=== PATIENT | male | born 1990 | race Caucasian/White ===

== ENCOUNTER 2019-06-18 00:54 | Emergency (ER) | payer MEDICAID ==
[~2019-06-18] VITALS: Ht 193 cm; Wt 100.0 kg
[2019-06-18] MEDS ORDERED: NO HOME MEDS (01:24)
--- NOTE | 2019-06-18 01:27 | NUR ---
relieving RN for break, Dr Hill is at bedside to evaluate pt
[2019-06-18] MEDS ORDERED: normal saline 1000ML IV soln IVB ONE (01:30)
[2019-06-18 02:03] LABS: BASOPHILS % (AUTO) 0.3 % (0-1); EOSINOPHILS # (AUTO) 0.1 X10'3 (0-0.9); EOSINOPHILS % (AUTO) 1.1 % (0-6); HEMATOCRIT 42.6 % (42.0-52.0); HEMOGLOBIN 14.7 g/dl (14.0-17.9); LYMPHOCYTES # (AUTO) 1.5 X10'3 (1.1-4.8); LYMPHOCYTES % (AUTO) 14.1 % (21-51); MEAN CORPUSCULAR HGB CONC 34.4 g/dL (33.0-36.5); MEAN CORPUSCULAR VOLUME 87.1 FL (78-98); MEAN PLATELET VOLUME 9.2 FL (7.4-10.4); MONOCYTES # (AUTO) 0.8 X10'3 (0-0.9); NEUTROPHILS # (AUTO) 7.9 X10'3 (1.8-7.7); NEUTROPHILS % (AUTO) 76.5 % (42-75); PLATELET COUNT 202 X10'3 (140-440); RED BLOOD COUNT 4.89 X10'6 (4.70-6.10); RED CELL DISTRIBUTION WIDTH 12.1 % (11.5-14.5); WHITE BLOOD COUNT 10.3 X10'3 (4.5-11.0)
[2019-06-18 02:14] LABS: ALANINE AMINOTRANSFERASE 34 U/L (12-78); ALBUMIN 3.4 G/DL (3.4-5.0); ALBUMIN/GLOBULIN RATIO 1.2 (1.1-1.5); ALKALINE PHOSPHATASE 50 IU/L (46-116); ANION GAP 6 (8-16); ASPARTATE AMINO TRANSFERASE 19 U/L (10-37); BILIRUBIN,TOTAL 0.5 MG/DL (0.1-1.0); BLOOD UREA NITROGEN 10 MG/DL (7-18); BUN/CREATININE RATIO 10.5 (5.4-32.0); CALCIUM 8.6 MG/DL (8.5-10.1); CHLORIDE 107 MMOL/L (99-107); CREATININE 0.95 MG/DL (0.60-1.10); GLUCOSE 108 MG/DL (70-104); POTASSIUM 3.6 MMOL/L (3.5-5.1); SODIUM 140 MMOL/L (135-145); TOTAL CARBON DIOXIDE 26.6 MMOL/L (24-32); TOTAL PROTEIN 6.3 G/DL (6.4-8.2); eGFR > 90 ML/MIN
--- NOTE | 2019-06-18 02:15 | NUR ---
PT FATHER GEOVANNY FARLEY PHONED TO CHECK THE STATUS OF HIS SON , THE PATIENT. PATIENTS STATES THAT WE CAN GIVE HIS FATHER AN UPDATE REGULARING HIS MEDICALLY CARE AND CURRENT STATUS HE CAN REACHED AT
--- NOTE | 2019-06-18 02:30 | NUR ---
DR SOW TO ROOM . PT HAS BEEN DISCHARGE
--- NOTE | 2019-06-18 02:38 | NUR ---
PHONED PT FATHER GEOVANNY FARLEY [phone] TO ARRANGE TRANSPORTATION FOR THE PATIENT TO GO HOME HE HAS BEEN DISCHARGE
--- NOTE | 2019-06-18 03:10 | NUR ---
avani called for pt .....eta 4 am
--- NOTE | 2019-06-18 03:15 | NUR ---
conatacted pt father who is now home from his commute from [facility]. pt has been discharged and will be taking a taxi cab home as he was brought in by [facility]/ [place] [id number] [address] pt seen today for near syncope episode adn dizziness. was treated with ivf and flet alot better , pt verbalized understanding discharge instructions and follow up with primary md . no questions asked.
[2019-06-18 03:39] VITALS: BP 136/66
== END 2019-06-18 04:15 | disposition home or self-care (01) ==
LOC: ER 00:54
DX: R42 Dizziness and giddiness (principal); R55 Syncope and collapse; R06.02 Shortness of breath
CPT/HCPCS: 36415; 71045; 80053; 85025; 93005; 99285; J7030